=== PATIENT | male | born 1945 | race Caucasian/White ===

== ENCOUNTER 2019-01-25 18:25 | Inpatient (IN) | payer MEDICARE ==
[~2019-01-25] VITALS: Ht 188 cm; Wt 70.0 kg
[~2019-01-25 18:25] MED LIST: DIL100C PO; MILN25TA PO; VALP250C44 PO
[2019-01-25] MEDS ORDERED: normal saline 1000ML IV soln IV ONE (18:40)
[2019-01-25] MEDS ORDERED: ipratropium/albuterol 3ml nebule NEB ONE (18:40)
[2019-01-25] MEDS ORDERED: morphine 4 MG/ML inj SYRINge IV ONE ×2 (18:40→20:25)
[2019-01-25] MEDS ORDERED: methylPREDNISolone sod succ 125mg/2ml vial IV ONE (18:40)
[2019-01-25] MEDS ORDERED: ondansetron/PF 4mg/2ml inj IV ONE (18:40)
[2019-01-25 19:01] LABS: BASOPHILS # (AUTO) 0.1 X10'3 (0-0.2); BASOPHILS % (AUTO) 0.8 % (0-1); EOSINOPHILS # (AUTO) 2.4 X10'3 (0-0.9); EOSINOPHILS % (AUTO) 17.7 % (0-6); HEMATOCRIT 42.1 % (42.0-52.0); HEMOGLOBIN 14.2 g/dl (14.0-17.9); LYMPHOCYTES # (AUTO) 1.1 X10'3 (1.1-4.8); LYMPHOCYTES % (AUTO) 7.9 % (21-51); MEAN CORPUSCULAR HEMOGLOBIN 32.2 PG (27.0-31.0); MEAN CORPUSCULAR HGB CONC 33.7 g/dL (33.0-36.5); MEAN CORPUSCULAR VOLUME 95.7 FL (78-98); MEAN PLATELET VOLUME 9.1 FL (7.4-10.4); MONOCYTES # (AUTO) 0.8 X10'3 (0-0.9); MONOCYTES % (AUTO) 5.6 % (2-12); NEUTROPHILS # (AUTO) 9.4 X10'3 (1.8-7.7); PLATELET COUNT 234 X10'3 (140-440); RED CELL DISTRIBUTION WIDTH 14.4 % (11.5-14.5); WHITE BLOOD COUNT 13.8 X10'3 (4.5-11.0)
[2019-01-25 19:13] LABS: ALANINE AMINOTRANSFERASE 23 U/L (12-78); ALBUMIN 3.8 G/DL (3.4-5.0); ALKALINE PHOSPHATASE 63 IU/L (46-116); ANION GAP 15 (8-16); ASPARTATE AMINO TRANSFERASE 24 U/L (10-37); BILIRUBIN,TOTAL 0.6 MG/DL (0.1-1.0); BLOOD UREA NITROGEN 15 MG/DL (7-18); BUN/CREATININE RATIO 13.3 (5.4-32.0); CALCIUM 9.6 MG/DL (8.5-10.1); CHLORIDE 103 MMOL/L (99-107); CREATININE 1.13 MG/DL (0.60-1.10); GLUCOSE 122 MG/DL (70-104); POTASSIUM 4.1 MMOL/L (3.5-5.1); SODIUM 139 MMOL/L (135-145); TOTAL CARBON DIOXIDE 21.3 MMOL/L (24-32); TOTAL PROTEIN 7.7 G/DL (6.4-8.2); eGFR 63 ML/MIN
[2019-01-25 19:16] LABS: CLARITY,URINE CLEAR (Clear); COLOR,URINE YELLOW (Yellow); GLUCOSE, URINE NEGATIVE (Neg); KETONES,URINE NEGATIVE (Neg); LEUKOCYTE ESTERASE ,URINE NEGATIVE (Neg); NITRITES, URINE NEGATIVE (Neg); OCCULT BLOOD,URINE MODERATE (Neg); PH,URINE 5.5 (4.8-8.0); PROTEIN,URINE NEGATIVE (Neg); UROBILINOGEN,URINE 0.2 E.U/dL (0.2-1.0)
[2019-01-25 19:17] LABS: UA COLLECTION TYPE STRAIGHT CATH
[2019-01-25] MEDS ORDERED: cefepime 2gm inj IV SCH (19:25)
[2019-01-25 19:29] LABS: BACTERIA,URINE NONE SEEN /HPF (Neg); SQUAMOUS EPITHELIAL CELL,UR FEW /LPF (FEW); WBC,URINE NONE SEEN /HPF (0-4)
[2019-01-25 19:30] LABS: RBC,URINE 0-2 /HPF (0-2)
[2019-01-25] MEDS ORDERED: cefepime 2,000MG/100 ML NS ADD-VANTAGE IV SCH (19:45)
[2019-01-25] MEDS: CEFEPIME 2 GM in NS 100ml IV.SOLN 100 ML IV SCH (19:58)
[2019-01-25] MEDS ORDERED: ciprofloxacin lact 400MG/200ML 200 ML IV SCH (20:20)
[2019-01-25] MEDS ORDERED: HYDROcodone/acetaminophen 5mg/325mg tablet PO PRN (20:45)
[2019-01-25] MEDS ORDERED: ondansetron/PF 4mg/2ml inj IV PRN (20:45)
[2019-01-25] MEDS ORDERED: magnesium hydroxide 30ml (MOM) UD suspension PO PRN (20:45)
[2019-01-25] MEDS ORDERED: morphine 2 MG/ML inj. syringe IV PRN ×2 (20:45)
[2019-01-25] MEDS ORDERED: acetaminophen 325mg tablet PO PRN ×2 (20:45)
[2019-01-25] MEDS ORDERED: potassium Cl 20 mEq SR tablet PO PRN ×2 (20:45)
[2019-01-25] MEDS ORDERED: magnesium 4gm in 100ml NS 100 ML IV PRN (20:45)
[2019-01-25] MEDS ORDERED: magnesium 2GM in 50ml NS 50 ML IV PRN (20:45)
[2019-01-25] MEDS ORDERED: potassium CL 10mEq/100ml bag 100 ML IV PRN ×2 (20:45)
[2019-01-25] MEDS ORDERED: mag hydrox/Alum hydrox/simeth 30ml oral suspension PO PRN (20:45)
[2019-01-25] MEDS ORDERED: magnesium Cl slow-release 64mg tablet PO PRN (20:45)
[2019-01-25 20:49] LABS: PLATELET ESTIMATE NORMAL; TOTAL CELLS COUNTED 100
[2019-01-25] MEDS ORDERED: LIDOcaine 2% 10ml TOPICAL JELLY (Urojet) MM ONE (21:00)
[2019-01-25] MEDS ORDERED: ASPI-1264 PO (21:15)
[2019-01-25] MEDS: normal saline 1000ml 1,000 ML IV SCH (23:20)
[2019-01-25 23:30] VITALS: BP 137/73
[2019-01-26] MEDS ORDERED: cefepime 2,000MG/100 ML NS ADD-VANTAGE IV SCH
[2019-01-26] MEDS ORDERED: ipratropium/albuterol 3ml nebule NEB PRN (02:35)
[2019-01-26] MEDS: CEFEPIME 2 GM in NS 100ml IV.SOLN 100 ML IV SCH ×3 (04:49→20:22)
[2019-01-26 05:54] LABS: BASOPHILS % (AUTO) 0.4 % (0-1); EOSINOPHILS # (AUTO) 0.1 X10'3 (0-0.9); EOSINOPHILS % (AUTO) 0.9 % (0-6); HEMATOCRIT 39.8 % (42.0-52.0); HEMOGLOBIN 13.6 g/dl (14.0-17.9); LYMPHOCYTES # (AUTO) 0.5 X10'3 (1.1-4.8); LYMPHOCYTES % (AUTO) 6.8 % (21-51); MEAN CORPUSCULAR HEMOGLOBIN 32.8 PG (27.0-31.0); MEAN CORPUSCULAR HGB CONC 34.3 g/dL (33.0-36.5); MEAN CORPUSCULAR VOLUME 95.7 FL (78-98); MEAN PLATELET VOLUME 9.5 FL (7.4-10.4); MONOCYTES # (AUTO) 0.1 X10'3 (0-0.9); MONOCYTES % (AUTO) 1.3 % (2-12); NEUTROPHILS # (AUTO) 7.1 X10'3 (1.8-7.7); NEUTROPHILS % (AUTO) 90.6 % (42-75); PLATELET COUNT 207 X10'3 (140-440); RED BLOOD COUNT 4.16 X10'6 (4.70-6.10); RED CELL DISTRIBUTION WIDTH 14.6 % (11.5-14.5); WHITE BLOOD COUNT 7.8 X10'3 (4.5-11.0)
[2019-01-26 05:55] LABS: ALBUMIN 2.9 G/DL (3.4-5.0); ANION GAP 10 (8-16); BLOOD UREA NITROGEN 13 MG/DL (7-18); BUN/CREATININE RATIO 13.1 (5.4-32.0); CALCIUM 8.7 MG/DL (8.5-10.1); CHLORIDE 109 MMOL/L (99-107); CREATININE 0.99 MG/DL (0.60-1.10); GLUCOSE 154 MG/DL (70-104); MAGNESIUM 1.6 MG/DL (1.5-2.4); POTASSIUM 4.8 MMOL/L (3.5-5.1); SODIUM 140 MMOL/L (135-145); TOTAL CARBON DIOXIDE 21.1 MMOL/L (24-32); eGFR 74 ML/MIN
--- NOTE | 2019-01-26 06:43 | NUR ---
Problems reprioritized. Patient report given, questions answered & plan of care reviewed with Niurka LAINEZ.
[2019-01-26] MEDS: normal saline 1000ml 1,000 ML IV SCH ×3 (06:44→21:17)
--- NOTE | 2019-01-26 06:55 | NUR ---
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 Pt is sleeping comfortably. Will finish trop series and order EKG and notify day hospitalist per Dr Zamarripa.
[2019-01-26] MEDS: ipratropium/albuterol 3ml nebule NEB SCH ×4 (07:14→19:25)
[2019-01-26 07:30] VITALS: BP 122/63
[2019-01-26] MEDS: K and/or MAG REPLACEMENT MC SCH (08:00)
[2019-01-26] MEDS: ciprofloxacin lact 400MG/200ML 200 ML IV SCH ×2 (08:24→21:18)
[2019-01-26] MEDS: enoxaparin 40mg/0.4ml syringe SQ SCH (08:24)
[2019-01-26] MEDS: lactobacillus rhamnosus 10,000 MMU CELLS/CAPSULE PO SCH ×2 (08:24→20:18)
--- NOTE | 2019-01-26 08:55 | NUR ---
New troponin 0.39. Page out to Dr Felix to see if new orders need to be taken. Pt asymptomatic, no chest pain complain, no noted distress.
[2019-01-26] MEDS ORDERED: heparin 25,000 UNIT/250ml bag 250 ML IV SCH (09:21)
[2019-01-26] MEDS ORDERED: heparin 10,000 units/1 ML INJ IV ONE (09:25)
[2019-01-26] MEDS ORDERED: heparin 10,000 units/1 ML INJ IV PRN (09:25)
--- NOTE | 2019-01-26 09:30 | NUR ---
Per Dr Felix, order trop in 6 hr, hang cardiac heparin drip.
[2019-01-26] MEDS ORDERED: pneumococcal 23-VAL P-sac vacc 25 mcg/0.5ml vial IMVAC ONE (10:00)
[2019-01-26] MEDS ORDERED: FLU VACC QS2019-20 36MOS UP/PF 60 MCG/0.5 ML SYRINGE IMVAC ONE (10:00)
[2019-01-26 10:22] LABS: BASOPHILS # (AUTO) 0.1 X10'3 (0-0.2); BASOPHILS % (AUTO) 0.6 % (0-1); EOSINOPHILS # (AUTO) 0.1 X10'3 (0-0.9); EOSINOPHILS % (AUTO) 0.5 % (0-6); HEMATOCRIT 38.6 % (42.0-52.0); HEMOGLOBIN 13.4 g/dl (14.0-17.9); LYMPHOCYTES # (AUTO) 0.9 X10'3 (1.1-4.8); LYMPHOCYTES % (AUTO) 9.3 % (21-51); MEAN CORPUSCULAR HEMOGLOBIN 32.9 PG (27.0-31.0); MEAN CORPUSCULAR HGB CONC 34.6 g/dL (33.0-36.5); MEAN CORPUSCULAR VOLUME 95.1 FL (78-98); MONOCYTES # (AUTO) 0.5 X10'3 (0-0.9); MONOCYTES % (AUTO) 4.7 % (2-12); NEUTROPHILS # (AUTO) 8.2 X10'3 (1.8-7.7); NEUTROPHILS % (AUTO) 84.9 % (42-75); PLATELET COUNT 215 X10'3 (140-440); RED BLOOD COUNT 4.06 X10'6 (4.70-6.10); RED CELL DISTRIBUTION WIDTH 14.7 % (11.5-14.5); WHITE BLOOD COUNT 9.6 X10'3 (4.5-11.0)
[2019-01-26 10:37] LABS: PARTIAL THROMBOPLASTIN TIME 29 SECONDS (22-32)
[2019-01-26 11:00] VITALS: BP 139/80
[2019-01-26] MEDS: budesonide 0.5mg/2ml UD nebule IH SCH ×2 (11:01→19:25)
[2019-01-26] MEDS: tamsulosin 0.4mg capsule PO SCH (13:01)
--- NOTE | 2019-01-26 15:03 | NUR ---
Malnutrition consult: Pt seen by ALINE and reports had lost wt down to 100# and then regained to current wt 155#; used to be 160# per pt. Pt reports eats little at breakfast and lunch and more at dinner w/ daughter cooking meals as well as encouraging PO at home. Pt reports having same eating habits for years and is not concerned about his wt at this time. PO 75% first meal regular breakfast this AM. Given no edema/wounds, no significant weakness, meeting needs w/ current PO, and current stable wt likely usual pt wt; pt does not meet minimum malnutrition criteria at this time. Will monitor for additional criteria and PO hx this admit. Addendum: 01/26/19 at [address] Amended: Links added.
[2019-01-26] MEDS ORDERED: aminophylline 250mg/10ml inj. IV PRN (16:35)
[2019-01-26] MEDS ORDERED: metoprolol tartrate 1mg/ml inj IV PRN (16:35)
[2019-01-26] MEDS ORDERED: regadenoson 0.4mg/5ml syringe IV ONE (16:35)
[2019-01-26] MEDS ORDERED: nitroGLYCERIN 0.4mg SUBLingual tab SL PRN (16:35)
--- NOTE | 2019-01-26 17:33 | NUR ---
DC'd heparin drip per Dr Felix. Continue previous dosage of lovenox. Dr Felix says "it's not an OR". Pt will have stress test tomorrow, follow up w/ dr Oneal outpt, keep brewster in for discharge and recheck 1 more trop at 0300 01/27
--- NOTE | 2019-01-26 18:52 | NUR ---
Patient in room [facility]. I have received report from Niurka LAINEZ and had the opportunity to ask questions and assume patient care.
--- NOTE | 2019-01-26 19:41 | NUR ---
Problems reprioritized. Patient report given, questions answered & plan of care reviewed with Taryn LAINEZ.
[2019-01-26 20:00] VITALS: BP 102/60
[2019-01-26] MEDS ORDERED: tamsulosin 0.4mg capsule PO SCH (21:00)
[2019-01-27] VITALS (12 sets, daily range): BP systolic 105–146; BP diastolic 60–78
[2019-01-27] MEDS: CEFEPIME 2 GM in NS 100ml IV.SOLN 100 ML IV SCH ×3 (05:23→23:22)
[2019-01-27 05:34] LABS: BASOPHILS % (AUTO) 0.4 % (0-1); EOSINOPHILS # (AUTO) 0.6 X10'3 (0-0.9); EOSINOPHILS % (AUTO) 6.2 % (0-6); HEMATOCRIT 34.6 % (42.0-52.0); HEMOGLOBIN 11.9 g/dl (14.0-17.9); LYMPHOCYTES # (AUTO) 1.3 X10'3 (1.1-4.8); LYMPHOCYTES % (AUTO) 13.2 % (21-51); MEAN CORPUSCULAR HEMOGLOBIN 32.7 PG (27.0-31.0); MEAN CORPUSCULAR HGB CONC 34.3 g/dL (33.0-36.5); MEAN CORPUSCULAR VOLUME 95.3 FL (78-98); MEAN PLATELET VOLUME 9.6 FL (7.4-10.4); MONOCYTES # (AUTO) 0.7 X10'3 (0-0.9); MONOCYTES % (AUTO) 6.8 % (2-12); NEUTROPHILS # (AUTO) 7.2 X10'3 (1.8-7.7); NEUTROPHILS % (AUTO) 73.4 % (42-75); PLATELET COUNT 199 X10'3 (140-440); RED BLOOD COUNT 3.63 X10'6 (4.70-6.10); RED CELL DISTRIBUTION WIDTH 14.7 % (11.5-14.5); WHITE BLOOD COUNT 9.8 X10'3 (4.5-11.0)
[2019-01-27 05:43] LABS: ALBUMIN 2.7 G/DL (3.4-5.0); ANION GAP 12 (8-16); BLOOD UREA NITROGEN 16 MG/DL (7-18); BUN/CREATININE RATIO 15.1 (5.4-32.0); CALCIUM 8.9 MG/DL (8.5-10.1); CHLORIDE 110 MMOL/L (99-107); CREATININE 1.06 MG/DL (0.60-1.10); GLUCOSE 94 MG/DL (70-104); MAGNESIUM 1.8 MG/DL (1.5-2.4); POTASSIUM 4.1 MMOL/L (3.5-5.1); SODIUM 144 MMOL/L (135-145); TOTAL CARBON DIOXIDE 22.3 MMOL/L (24-32); TROPONIN I 0.32 NG/ML (0.0-0.05); eGFR 68 ML/MIN
--- NOTE | 2019-01-27 06:43 | NUR ---
Problems reprioritized. Patient report given, questions answered & plan of care reviewed with Cris LAINEZ.
[2019-01-27] MEDS: budesonide 0.5mg/2ml UD nebule IH SCH ×2 (07:01→20:05)
[2019-01-27] MEDS: ipratropium/albuterol 3ml nebule NEB SCH ×4 (07:01→20:05)
[2019-01-27] MEDS: ciprofloxacin lact 400MG/200ML 200 ML IV SCH ×2 (07:48→19:45)
[2019-01-27] MEDS: lactobacillus rhamnosus 10,000 MMU CELLS/CAPSULE PO SCH ×2 (07:48→19:44)
[2019-01-27] MEDS: tamsulosin 0.4mg capsule PO SCH (07:48)
[2019-01-27] MEDS: enoxaparin 40mg/0.4ml syringe SQ SCH (07:49)
[2019-01-27] MEDS: K and/or MAG REPLACEMENT MC SCH (08:00)
[2019-01-27] MEDS: normal saline 1000ml 1,000 ML IV SCH ×2 (13:55→23:23)
[2019-01-27] MEDS: clopidogrel 75mg tablet PO SCH (17:40)
--- NOTE | 2019-01-27 18:27 | NUR ---
Problems reprioritized. Patient report given, questions answered & plan of care reviewed with FATOU Adair.
--- NOTE | 2019-01-27 18:37 | NUR ---
Student documentation: I have reviewed and agree with all interventions, assessments performed and documented by SN Zohra.
[2019-01-27] MEDS ORDERED: ciprofloxacin lact 400MG/200ML 200 ML IV SCH (20:00)
[2019-01-27] MEDS ORDERED: nitroGLYCERIN 0.4mg SUBLingual tab SL PRN (22:35)
[2019-01-27] MEDS: metoprolol succinate 25mg (24-HOUR) SR. Tablet PO SCH (23:21)
[2019-01-28] VITALS: BP 143/84
[2019-01-28] MEDS: CEFEPIME 2 GM in NS 100ml IV.SOLN 100 ML IV SCH ×2 (04:14→12:51)
[2019-01-28 05:25] LABS: BASOPHILS # (AUTO) 0.1 X10'3 (0-0.2); BASOPHILS % (AUTO) 0.7 % (0-1); EOSINOPHILS # (AUTO) 1.4 X10'3 (0-0.9); EOSINOPHILS % (AUTO) 19.4 % (0-6); HEMOGLOBIN 12.4 g/dl (14.0-17.9); LYMPHOCYTES # (AUTO) 1.2 X10'3 (1.1-4.8); LYMPHOCYTES % (AUTO) 16.3 % (21-51); MEAN CORPUSCULAR HGB CONC 34.5 g/dL (33.0-36.5); MEAN CORPUSCULAR VOLUME 95.5 FL (78-98); MEAN PLATELET VOLUME 9.3 FL (7.4-10.4); MONOCYTES # (AUTO) 0.6 X10'3 (0-0.9); MONOCYTES % (AUTO) 8.3 % (2-12); NEUTROPHILS # (AUTO) 4.1 X10'3 (1.8-7.7); NEUTROPHILS % (AUTO) 55.3 % (42-75); PLATELET COUNT 201 X10'3 (140-440); RED BLOOD COUNT 3.77 X10'6 (4.70-6.10); RED CELL DISTRIBUTION WIDTH 14.5 % (11.5-14.5); WHITE BLOOD COUNT 7.5 X10'3 (4.5-11.0)
[2019-01-28 05:41] LABS: ALBUMIN 2.6 G/DL (3.4-5.0); ANION GAP 13 (8-16); BLOOD UREA NITROGEN 11 MG/DL (7-18); BUN/CREATININE RATIO 9.7 (5.4-32.0); CALCIUM 8.6 MG/DL (8.5-10.1); CHLORIDE 107 MMOL/L (99-107); CHOL/HDL RATIO 2.5 (0.00-4.99); CHOLESTEROL 144 MG/DL (0-200); CREATININE 1.13 MG/DL (0.60-1.10); GLUCOSE 77 MG/DL (70-104); HDL CHOLESTEROL 58 MG/DL (35-60); LDL CHOLESTEROL 77 MG/DL (50-100); MAGNESIUM 1.5 MG/DL (1.5-2.4); POTASSIUM 3.8 MMOL/L (3.5-5.1); SODIUM 141 MMOL/L (135-145); TOTAL CARBON DIOXIDE 21.3 MMOL/L (24-32); TRIGLYCERIDES 82 MG/DL (20-135); eGFR 63 ML/MIN
--- NOTE | 2019-01-28 06:33 | NUR ---
Problems reprioritized. Patient report given, questions answered & plan of care reviewed with FATOU Lynch. Pt in stable condition at shift change
--- NOTE | 2019-01-28 06:35 | NUR ---
Patient in room [facility]. I have received report from FATOU Adair and had the opportunity to ask questions and assume patient care.
--- NOTE | 2019-01-28 06:39 | NUR ---
Patient in room [facility]. I have received report from FATOU Adair and had the opportunity to ask questions and assume patient care.
[2019-01-28] MEDS: budesonide 0.5mg/2ml UD nebule IH SCH (07:28)
[2019-01-28] MEDS: ipratropium/albuterol 3ml nebule NEB SCH ×3 (07:28→15:00)
--- NOTE | 2019-01-28 07:47 | NUR ---
Pt refuses angiogram recommended by Dr Leroy. Will continue with medical management recommended by Dr Amaya and give him heart healthy diet. Hospitalist on case notified.
[2019-01-28 07:52] VITALS: BP 149/87
[2019-01-28] MEDS: tamsulosin 0.4mg capsule PO SCH (08:00)
[2019-01-28] MEDS: K and/or MAG REPLACEMENT MC SCH (08:00)
[2019-01-28] MEDS: metoprolol succinate 25mg (24-HOUR) SR. Tablet PO SCH (08:01)
[2019-01-28] MEDS: clopidogrel 75mg tablet PO SCH (08:01)
[2019-01-28] MEDS: ciprofloxacin lact 400MG/200ML 200 ML IV SCH (08:01)
[2019-01-28] MEDS: lactobacillus rhamnosus 10,000 MMU CELLS/CAPSULE PO SCH (08:01)
[2019-01-28] MEDS: enoxaparin 40mg/0.4ml syringe SQ SCH (08:02)
[2019-01-28 08:13] LABS: % FREE PSA 22.9 % (.); PSA, FREE 9.35 ng/mL
[2019-01-28 11:00] VITALS: BP 132/88
--- NOTE | 2019-01-28 11:36 | NUR ---
I have reviewed and agree with all medications administered and interventions performed by [employer] Student Cosmo Awan.
[2019-01-28] MEDS ORDERED: METO-395 PO (11:43)
[2019-01-28] MEDS ORDERED: tamsulosin capsule PO (11:43)
[2019-01-28] MEDS ORDERED: LACT1CAP26 PO (11:43)
[2019-01-28] MEDS ORDERED: ATOR20TA66 PO (11:43)
[2019-01-28] MEDS ORDERED: CLOP75TA35 PO (11:43)
[2019-01-28] MEDS ORDERED: NITR0.4T51 SL (11:43)
[2019-01-28] MEDS ORDERED: CEPH250T PO (11:43)
[2019-01-28] MEDS ORDERED: LISI-604 PO (11:51)
[2019-01-28] MEDS: normal saline 1000ml 1,000 ML IV SCH (12:51)
--- NOTE | 2019-01-28 14:42 | NUR ---
Per Dr. Felix requested pt have an appt secured at Dr. Oneal's office before the pt is discharged home. Dr. Oneal's staff, Lashanda, stated the pt will not be given an appointment date/time until the pt fills out the "new patient" paperwork and submits it to their office, and then the office will request records from [facility] which will need to be reviewed by the office staff and Dr. Oneal first. Then they can not schedule an appt until Dr. Oneal approves the pt is to have an appt. I requested that Lashanda send the "new patient paperwork" to [phone] (3 Surg fax) to begin the process, to which she agreed. Primary RN, Cris, notified.
--- NOTE | 2019-01-28 16:50 | NUR ---
Provided pt discharge instructions. Educated patient on Brewster catheter maintenance and function. D/C'd IV. Pt to follow up with Dr. Oneal re brewster catheter. New pt information packet faxed to Dr. Oneal's office. Pt to follow up with Dr. Valerio or Dr. Leroy for cardiac follow up. Medications called in to [facility]. Escorted pt out by wheelchair. D/C'd to home in [place].
[2019-01-28] MEDS ORDERED: atorvastatin 20mg tablet PO SCH (21:00)
== END 2019-01-28 16:51 | disposition home or self-care (01) | DRG 725 ==
LOC: ER 18:26 → ED HOLD 21:06 → SUR 3N 22:15
PROVIDERS: ADMIT Hospitalist; ATTEND Family Medicine
PROC: 3E02340 Introduction of Influenza Vaccine into Muscle, Percutaneous Approach (ICD-10-PCS; 2019-01-26)
PROC: 3E0234Z Introduction of Serum, Toxoid and Vaccine into Muscle, Percutaneous Approach (ICD-10-PCS; 2019-01-26)
PROC: 4A02XM4 Measurement of Cardiac Total Activity, External Approach (ICD-10-PCS; principal; 2019-01-27)
PROC: 3E033HZ Introduction of Radioactive Substance into Peripheral Vein, Percutaneous Approach (ICD-10-PCS; 2019-01-27)
DX: N40.1 Benign prostatic hyperplasia with lower urinary tract symptoms (principal); I21.A1 Myocardial infarction type 2; N13.8 Other obstructive and reflux uropathy; N39.0 Urinary tract infection, site not specified; I16.0 Hypertensive urgency; F12.10 Cannabis abuse, uncomplicated; G40.909 Epilepsy, unspecified, not intractable, without status epilepticus; I08.1 Rheumatic disorders of both mitral and tricuspid valves; J44.9 Chronic obstructive pulmonary disease, unspecified; K21.9 Gastro-esophageal reflux disease without esophagitis; M48.00 Spinal stenosis, site unspecified; R33.8 Other retention of urine; M19.90 Unspecified osteoarthritis, unspecified site; Z77.22 Contact with and (suspected) exposure to environmental tobacco smoke (acute) (chronic); Z88.0 Allergy status to penicillin; Z23 Encounter for immunization; Z87.442 Personal history of urinary calculi; Z87.828 Personal history of other (healed) physical injury and trauma; Z79.899 Other long term (current) drug therapy
CPT/HCPCS: 36415; 71045; 74176; 78452; 80048; 80053; 80061; 81001; 83605; 83735; 84145; 84153; 84154; 84484; 85025; 85610; 85730; 87040; 87081; 90732; 93005; 93017; 93306; 94640; 94667; 94760; 96374; 97116; 97162; 97530; 99285; A9500; G0378; J0692; J0744; J1644; J1650; J2270; J2785; J2930; J7030; J7626; Q2037

== ENCOUNTER 2019-01-30 12:45 | Emergency (ER) | payer MEDICARE ==
[~2019-01-30] VITALS: Ht 182.9 cm; Wt 70.0 kg
[~2019-01-30 12:45] MED LIST changes: +ASPI-1264 PO; +ATOR20TA66 PO; +CEPH250T PO; +CLOP75TA35 PO; +LACT1CAP26 PO; +LISI-604 PO; +METO-395 PO; +NITR0.4T51 SL; +tamsulosin capsule PO
[2019-01-30 13:58] LABS: CLARITY,URINE SLIGHTLY CLOUDY (Clear); COLOR,URINE YELLOW (Yellow); GLUCOSE, URINE NEGATIVE (Neg); KETONES,URINE 15 mg/dl (Neg); LEUKOCYTE ESTERASE ,URINE NEGATIVE (Neg); NITRITES, URINE NEGATIVE (Neg); OCCULT BLOOD,URINE LARGE (Neg); PROTEIN,URINE 30 mg/dl (Neg); UROBILINOGEN,URINE 0.2 E.U/dL (0.2-1.0)
[2019-01-30 14:00] LABS: UA COLLECTION TYPE FOLEY CATH
[2019-01-30 14:33] LABS: MUCUS STRANDS FEW /LPF (Neg); SQUAMOUS EPITHELIAL CELL,UR FEW /LPF (FEW)
[2019-01-30 14:35] LABS: RBC,URINE TNTC /HPF (0-2); WBC,URINE 0-4 /HPF (0-4)
[2019-01-30 14:38] LABS: CAL OXALATE CRYSTALS FEW /HPF (NEGATIVE)
[2019-01-30 14:39] LABS: BACTERIA,URINE FEW /HPF (Neg)
[2019-01-30 16:01] VITALS: BP 109/83
== END 2019-01-30 17:11 | disposition home or self-care (01) ==
LOC: ER 12:47
DX: T83.098A Other mechanical complication of other urinary catheter, initial encounter (principal); F12.90 Cannabis use, unspecified, uncomplicated; Z98.890 Other specified postprocedural states; Z87.442 Personal history of urinary calculi; Y84.6 Urinary catheterization as the cause of abnormal reaction of the patient, or of later complication, without mention of misadventure at the time of the procedure; Y92.89 Other specified places as the place of occurrence of the external cause
CPT/HCPCS: 51702; 81001; 99284